=== PATIENT | female | born 1945 | race African-American/Black ===

== ENCOUNTER 2019-05-07 | Day surgery (SDC) | payer MEDICARE ==
[~2019-05-07] MED LIST: ACTOS15 MG OR; ADVAIR DISK1 IN; ADVAIR DISK1 INH; ADVAIR DISKU IN; ALBUTEROL SUL0.083 % IN; ASPIRIN LOW DOS81 M2 PO; AUGMENTIN500TAB PO; AVELOX400 MG OR; BACTRIM DS1 TAB OR; CELEBREX100 M1 PO; CELEBREX200 M1; CENTRUM PO; CRESTOR10 MG OR; CRESTOR5 MG OR; FLEXERIL OR; GABAPENTIN100 MG PO; GLIPIZIDE XL10 MG OR; GLIPIZIDE XL2.5 MG OR; GLIPIZIDE10 M1 OR; GLIPIZIDE10 MG PO; HUMALOG KW100 UNIT/M SC; JANTOVEN10 MG OR; JANUVIA100 MG PO; JANUVIA25 MG OR; KEFLEX500 MG OR; LANTUS SOLOSTAR SC; LANTUS100 MG/ML SC; LISINOPRIL5 MG PO; LORTAB5 OR; MELOXICAM7.5 MG OR; METFORMIN500 MG OR; METFORMIN500 MG PO; NAPROSYN500 MG OR; NAPROSYN500 MG PO; NOVOLO1 SC; OMEPRAZOLE20 M1 PO; OXYBUTYNIN5 M1 PO; PHENERGAN IN25 MG/ML RE; PREVACID15 M1 OR; PREVACID30 M1 OR; PRILOSEC40 MG PO; PROMETRIUM100 MG OR; SIMVASTATIN10 MG PO; SIMVASTATIN40 MG PO; SINGULAIR10 MG PO; TOVIAZ4 MG PO; TRESIBA100 UNIT/M SC; VICODIN ES1 TAB OR; VITAMIN D350000 UNIT PO; VITAMIN D50000 UN1 PO; ZOFRAN ODT8 MG OR
== END 2019-05-07 09:48 | disposition home or self-care (01) ==
PROC: 0DB78ZX Excision of Stomach, Pylorus, Via Natural or Artificial Opening Endoscopic, Diagnostic (ICD-10-PCS; principal; 2019-05-07)
PROC: 0DBH8ZX Excision of Cecum, Via Natural or Artificial Opening Endoscopic, Diagnostic (ICD-10-PCS; 2019-05-07)
PROC: 0DBF8ZX Excision of Right Large Intestine, Via Natural or Artificial Opening Endoscopic, Diagnostic (ICD-10-PCS; 2019-05-07)
DX: Z12.11 Encounter for screening for malignant neoplasm of colon (principal); D12.2 Benign neoplasm of ascending colon; K57.30 Diverticulosis of large intestine without perforation or abscess without bleeding; K50.10 Crohn's disease of large intestine without complications; K64.8 Other hemorrhoids; K21.9 Gastro-esophageal reflux disease without esophagitis; K29.70 Gastritis, unspecified, without bleeding; E11.9 Type 2 diabetes mellitus without complications; I10 Essential (primary) hypertension; J44.9 Chronic obstructive pulmonary disease, unspecified; Z80.0 Family history of malignant neoplasm of digestive organs; Z79.899 Other long term (current) drug therapy; Z79.4 Long term (current) use of insulin